=== PATIENT | female | born 2000 | race Caucasian/White ===

== ENCOUNTER 2020-07-19 01:08 | Emergency (ER) | payer MEDICAID ==
[~2020-07-19] VITALS: Ht 165.1 cm; Wt 68.0 kg
[2020-07-19 01:18] VITALS: BP 130/69
--- NOTE | 2020-07-19 03:55 | NUR ---
Patient discharged to home in stable condition. Written and verbal after care instructions given. Patient verbalizes understanding of instruction.pt. ambulatory with a steady gait
== END 2020-07-19 03:56 | disposition home or self-care (01) ==
LOC: ER 01:08
DX: R51.9 Headache, unspecified (principal); Y08.89XA Assault by other specified means, initial encounter; Y93.89 Activity, other specified; Y92.89 Other specified places as the place of occurrence of the external cause; Y99.8 Other external cause status
CPT/HCPCS: 70450-TC